=== PATIENT | male | born 1965 | race Caucasian/White ===

== ENCOUNTER 2020-07-24 11:11 | Emergency (ER) | payer OTHER ==
[~2020-07-24] VITALS: Ht 177.8 cm; Wt 77.1 kg
[2020-07-24 11:14] VITALS: BP_SYST 165
[2020-07-24] MEDS ORDERED: HYDR-3917 PO (13:29)
[2020-07-24] MEDS ORDERED: IBUP-1971 PO (13:29)
[2020-07-24 13:53] VITALS: BP_SYST 165
== END 2020-07-24 13:54 | disposition home or self-care (01) ==
LOC: SED 11:11
DX: S70.01XA Contusion of right hip, initial encounter (principal); S09.90XA Unspecified injury of head, initial encounter; V49.49XA Driver injured in collision with other motor vehicles in traffic accident, initial encounter; Y93.89 Activity, other specified; Y92.89 Other specified places as the place of occurrence of the external cause; Y99.8 Other external cause status
CPT/HCPCS: 70450-TC; 72125-TC; 72170-TC; 76376; 99285